=== PATIENT | female | born 1980 | race Caucasian/White ===

== ENCOUNTER → 2018-05-26 13:13 | Outpatient (CLI) | payer OTHER, SELFPAY ==
[2018-05-26 15:44] LABS: Color, Urine Yellow (Yellow); Glucose, Dipstick Normal (Normal); Ketone-Dipstick 5 mg/dl (Negative); Leukocyte Esterase-Dipstick 25 /ul (Negative); Nitrite-Dipstick Negative (Negative); Occult Blood-Urine Negative /ul (Negative); Protein-Dipstick Negative (Negative); Urine Bilirubin Dipstick Negative (Negative); Urine Clarity Clear (Clear); Urine Urobilinogen Normal (Normal)
[2018-05-26 15:48] LABS: Absolute Lymphocyte Count 1.58 X10^3/ul (0.83-4.51); Absolute Neutrophil Count 5.6 X10^3/uL (2.0-7.7); Basophil# 0.01 X10^3/uL; Basophil% 0.1 % (0-1); Eosinophil# 0.03 X10^3/uL; Eosinophils% 0.4 % (0-5); Hemoglobin 13.3 g/dl (12.0-15.0); Lymphocyte # 1.58 X10^3/ul (4.0); Lymphocyte % 21.1 % (19-41); Mean Corp Hgb Conc 34.1 g/gl (32-36); Mean Corpuscular Hgb 31.4 pg (27.0-32.0); Mean Corpuscular Volume 92.2 fL (81-99); Mean Platelet Vol. 9.9 fl (6.2-12.0); Monocyte# 0.25 X10^3/uL; Monocyte% 3.3 % (0-10); Neutrophil # 5.62 X10^3/uL (2.7-7.7); POSITIVE COUNT NO; POSITIVE DIFFERENTIAL NO; POSITIVE MORPHOLOGY NO; Platelet Count 220 K/mm3 (150-450); RBC Distribution Width CV 14.2 % (11.6-14.6); RBC Distribution Width SD 47.6 fl (35.1-43.9); Red Blood Count 4.23 M/mm3 (4.2-5.4); White Blood Count 7.5 K/mm3 (4.4-11.0)
[2018-05-26 16:06] LABS: Thyroid Stim Hormone (TSH) 2.58 uIU/mL (0.358-3.74)
[2018-05-26 16:48] LABS: HIV - WCH Non-Reactive (Nonreactive); Rubella IgG 209.7 IU/mL
[2018-05-26 17:13] LABS: Chlamydia Trachomatis by PCR Negative (Negative); Neisserai gonorrhoeae by PCR Negative (Negative); Probe Check PASS; Sample Adequacy Control PASS; Specimen Processing Control PASS
[2018-05-28 00:19] LABS: Prenatal RPR NONREACTIVE (NONREACTIVE)
[2018-05-28 11:46] LABS: HEPATITIS B SURFACE AG Negative (Negative); Hep C Antibodies 0.2 s/co ratio (0.0-0.9)
== END ==
PROVIDERS: Visit Provider Obstetrics & Gynecology
DX: Z34.82 Encounter for supervision of other normal pregnancy, second trimester (principal); Z11.3 Encounter for screening for infections with a predominantly sexual mode of transmission
CPT/HCPCS: 36415; 81002; 84443; 85025; 86703; 86762; 86803; 87340; 87491; 87591

== ENCOUNTER → 2018-07-21 09:58 | Outpatient (CLI) | payer OTHER, SELFPAY ==
[2018-07-21 10:42] LABS: Hematocrit 34.6 % (37-47); Hemoglobin 12.2 g/dl (12.0-15.0); Mean Corp Hgb Conc 35.3 g/gl (32-36); Mean Corpuscular Hgb 33.2 pg (27.0-32.0); Mean Corpuscular Volume 94.3 fL (81-99); Mean Platelet Vol. 9.5 fl (6.2-12.0); Platelet Count 193 K/mm3 (150-450); RBC Distribution Width CV 13.2 % (11.6-14.6); RBC Distribution Width SD 45.5 fl (35.1-43.9); Red Blood Count 3.67 M/mm3 (4.2-5.4); White Blood Count 6.9 K/mm3 (4.4-11.0)
[2018-07-21 10:48] LABS: Scan Indicated on CBC? Y/N NO
[2018-07-21 10:50] LABS: Glucose Challenge Gest 1H 50g 113 mg/dL (70-140)
== END ==
PROVIDERS: Family Provider Family Medicine; PCP Family Medicine; Visit Provider Obstetrics & Gynecology
DX: Z34.83 Encounter for supervision of other normal pregnancy, third trimester (principal)
CPT/HCPCS: 36415; 82950; 85027

== ENCOUNTER → 2018-09-13 16:33 | Outpatient (CLI) | payer SELFPAY ==
[2016-10-12 17:43] VITALS: BMI 29.0
== END ==
PROVIDERS: Visit Provider Obstetrics & Gynecology
DX: Z36.85 Encounter for antenatal screening for Streptococcus B (principal)
CPT/HCPCS: 87081

== ENCOUNTER 2018-10-23 15:35 | Inpatient (IN) | payer SELFPAY ==
[2018-10-23 16:39] VITALS: BMI 28.5
[2018-10-23] MEDS: Lactated Ringers 1,000 ML 50 ML IV ×2 (16:40→17:41)
[2018-10-23 16:50] LABS: Hematocrit 35.2 % (37-47); Hemoglobin 12.3 g/dl (12.0-15.0); Mean Corp Hgb Conc 34.9 g/gl (32-36); Mean Corpuscular Hgb 32.9 pg (27.0-32.0); Mean Corpuscular Volume 94.1 fL (81-99); Mean Platelet Vol. 10.3 fl (6.2-12.0); Platelet Count 188 K/mm3 (150-450); RBC Distribution Width CV 12.7 % (11.6-14.6); RBC Distribution Width SD 43.3 fl (35.1-43.9); Red Blood Count 3.74 M/mm3 (4.2-5.4); White Blood Count 8.6 K/mm3 (4.4-11.0)
[2018-10-23 16:51] LABS: Scan Indicated on CBC? Y/N NO
[2018-10-23] MEDS: Oxytocin 30 units/NS 500 ml 30 UNITS/500 ML IV.SOLN 334 UNITS IV (18:55)
--- NOTE | 2018-10-23 19:02 | PCM.OB.VAG ---
Vaginal Delivery Maternal Presentation: Active Labor late PNC. 41 3/7 wk EGA Amniotic Membrane Rupture Type: Artificial Amniotic Fluid Description: Moderate meconium Final MADDY: 10/13/18 Gestational age: 41 Weeks and 3 Days Date of Procedure: 10/23/18 Pre-Operative Diagnosis: 41 3/7 wk Post-Operative Diagnosis: Same Surgery/ Procedure Performed: Spontaneous Vaginal Delivery Type of Anesthesia: None Description of Procedure: of a pena viable female over intact perineum Head delivered BARBARA OP and nares bulb suctioned on perineum Blood noted from OP. Large clot delivered adjacent to baby. Nuchal cord x one reduced. Shoulders delivered easily. Baby to Dr. Kyle and RT in attendance for delivery. Ap 8/9 wt pending. Routine cord gases collected, sent PP exam: no lacerations noted. Large cystocele and rectocele Placenta delivered by spont expulsion, expression. 3V cord, normal appearing and intact with trailing membranes. continued bleeding throughout this stage. Methergine 0.2 mg IM x one given. IV pitocin at 500 cc / hr given as bolus. Cytotec 1000 mcg MI x one. Exam then to extract additional clot from vagina and lower uterine segment. Fundus firm NT at well inferior to umbilicus then. EBL total approx 1000 cc Pt and infant tolerated delivery well. To recovery , stable condition. Presentation: Vertex, BARBARA Placental Delivery Description: Spontaneous Placenta Disposition: [facility] Cord Vessel Description: 3 Vessels Nuchal Cord Compression: Without compression Cord Gases drawn per routine: ABG, VBG Cord Entanglement: Around neck x 1, loose Estimated Blood Loss: 1000 cc Infant A gender: Female (1 minute): 8 (5 minute): 9 Episiotomy Description: None Laceration: None Medications given after delivery: IV Pitocin, IM Methergin - Cytotec 1000 mcg MI x one. Complications: - - hemorrhage, multip
--- NOTE | 2018-10-23 19:18 | OP.PCM_ITS ---
Vaginal Delivery Maternal Presentation: Active Labor late PNC. 41 3/7 wk EGA Amniotic Membrane Rupture Type: Artificial Amniotic Fluid Description: Moderate meconium Final MADDY: 10/13/18 Gestational age: 41 Weeks and 3 Days Date of Procedure: 10/23/18 Pre-Operative Diagnosis: 41 3/7 wk Post-Operative Diagnosis: Same Surgery/ Procedure Performed: Spontaneous Vaginal Delivery Type of Anesthesia: None Description of Procedure: of a pena viable female over intact perineum Head delivered BARBARA OP and nares bulb suctioned on perineum Blood noted from OP. Large clot delivered adjacent to baby. Nuchal cord x one reduced. Shoulders delivered easily. Baby to Dr. Kyle and RT in attendance for delivery. Ap 8/9 wt pending. Routine cord gases collected, sent PP exam: no lacerations noted. Large cystocele and rectocele Placenta delivered by spont expulsion, expression. 3V cord, normal appearing and intact with trailing membranes. continued bleeding throughout this stage. Methergine 0.2 mg IM x one given. IV pitocin at 500 cc / hr given as bolus. Cytotec 1000 mcg NH x one. Exam then to extract additional clot from vagina and lower uterine segment. Fundus firm NT at well inferior to umbilicus then. EBL total approx 1000 cc Pt and infant tolerated delivery well. To recovery , stable condition. Presentation: Vertex, BARBARA Placental Delivery Description: Spontaneous Placenta Disposition: [facility] Cord Vessel Description: 3 Vessels Nuchal Cord Compression: Without compression Cord Gases drawn per routine: ABG, VBG Cord Entanglement: Around neck x 1, loose Estimated Blood Loss: 1000 cc Infant A gender: Female (1 minute): 8 (5 minute): 9 Episiotomy Description: None Laceration: None Medications given after delivery: IV Pitocin, IM Methergin - Cytotec 1000 mcg NH x one. Complications: - - hemorrhage, multip
--- NOTE | 2018-10-23 19:25 | PCM.DCVAG ---
Discharge Diet: No Restrictions Return to work on:: 11/20/18 May resume sexual activity in: 4-6 weeks Additional Activity Instructions:: Nothing in the vagina for 4-6 weeks. You may return to work/school in 6 weeks. Additional Instructions: If you experience any of the following, contact your healthcare provider. Bleeding that soaks a pad every hour for 2 hours Fever 100.4 or higher Unrelieved abdominal pain Problems urinating (including inability to urinate or burning while urinating). Visual changes Severe headache Flu-like symptoms Pain or redness in one of both of your breasts Pain, warmth, tenderness or swelling in your legs, especially the calf area Frequent nausea and vomiting Symptoms of depression or anxiety If you experience any of the following, call 911 or go to the nearest Emergency Room. Chest pain Problems breathing Seizure activity Partial or complete paralysis of a body part, slurred speech, weakness or drooping of the face, or a sudden inability to walk or hold your balance Allergies/Adverse Reactions: Allergies No Known Allergies Allergy (Verified 10/12/16 17:52) Medications to take at Discharge Vits [Prenatabs FA ] 1 tablet PO DAILY 11/21/13 Fish Oil PO DAILY 10/23/18 Please Follow Up With: Daryl Browne MD - [phone] When: Call to make an appointment with your doctor in 6 weeks. Primary Care Physician: Lucas Restrepo MD [Primary Care Provider] - Test Results: Test results from this visit will be discussed in further detail at your follow-up appointment, if applicable. Proposed Discharge Date: 10/24/18
--- NOTE | 2018-10-23 19:26 | DCINST_ITS ---
Discharge Diet: No Restrictions Return to work on:: 11/20/18 May resume sexual activity in: 4-6 weeks Additional Activity Instructions:: Nothing in the vagina for 4-6 weeks. You may return to work/school in 6 weeks. Additional Instructions: If you experience any of the following, contact your healthcare provider. * Bleeding that soaks a pad every hour for 2 hours * Fever 100.4 or higher * Unrelieved abdominal pain * Problems urinating (including inability to urinate or burning while urinating). * Visual changes * Severe headache * Flu-like symptoms * Pain or redness in one of both of your breasts * Pain, warmth, tenderness or swelling in your legs, especially the calf area * Frequent nausea and vomiting * Symptoms of depression or anxiety If you experience any of the following, call 911 or go to the nearest Emergency Room. * Chest pain * Problems breathing * Seizure activity * Partial or complete paralysis of a body part, slurred speech, weakness or drooping of the face, or a sudden inability to walk or hold your balance Allergies/Adverse Reactions: Allergies No Known Allergies Allergy (Verified 10/12/16 17:52) Medications to take at Discharge Vits [Prenatabs FA ] 1 tablet PO DAILY 11/21/13 Fish Oil PO DAILY 10/23/18 Please Follow Up With: Daryl Browne MD - [phone] When: Call to make an appointment with your doctor in 6 weeks. Primary Care Physician: Lucas Restrepo MD [Primary Care Provider] - Test Results: Test results from this visit will be discussed in further detail at your follow- up appointment, if applicable. Proposed Discharge Date: 10/24/18
[2018-10-23] MEDS: Oxytocin 30 units/NS 500 ml 30 UNITS/500 ML IV.SOLN 167 UNITS IV (19:55)
[2018-10-23 21:55] VITALS: BP 128/59; PULSE 65; RESP 18; TEMP 37.9; O2SAT 100
--- NOTE | 2018-10-23 21:55 | NURSING ---
10/23/185: Pt. temperature elevated at 100.2 degrees. Tylenol was given at 1939 and is not yet due. Room temperature turned down slightly and pt. was given just one blanket instead of the two on her bed. Pt. declines any headache or nausea. Will continue to monitor temperature and give more tylenol when due.
[2018-10-23 23:38] VITALS: BP 122/58; PULSE 83; RESP 17; TEMP 37.3; O2SAT 100
[2018-10-23] MEDS: Acetaminophen 500 MG Tablet 1000 MG PO (23:45)
--- NOTE | 2018-10-24 01:06 | NURSING ---
Patient recieved first bag of pitocin 500ml at 334ml/hr and then 2nd bag of pitocin @167ml/hr until complete. fundus firm and bleeding minimal
[2018-10-24 08:50] VITALS: BP 126/60; PULSE 74; RESP 16; TEMP 36.7
--- NOTE | 2018-10-24 08:51 | PCM.PN.OB ---
Subjective: PPD#1 Doing well. Nursing. States up a lot last night with baby Hoping to rest today. Doing well minimal pain. No heavy bleeding reported. S/L in place L forearm and will remove this today. - Physical Exam General: Alert, Oriented x3, Cooperative, No apparent distress HEENT: Atraumatic Neck: Supple Abdomen: Soft - fundus firm NT at umbilicus Psych/Mental Status: Normal Affect Vital Signs Temp Pulse Resp BP Pulse Ox 99.2 F H 83 17 122/58 H 100 10/23/18 23:38 10/23/18 23:38 10/23/18 23:38 10/23/18 23:38 10/23/18 23:38 Oxygen Delivery Method Room Air Weight: 80.286 kg Body Mass Index (BMI) 28.5 Intake and Output for Last 24 Hours 10/22/18 10/23/18 10/24/18 23:59 23:59 23:59 Intake Total 200 / 200 Output Total 200 / 200 Balance 0 / 0 Laboratory Tests Past 24 Hrs 10/23/18 10/23/18 16:30 16:30 WBC 8.6 RBC 3.74 L Hgb 12.3 Hct 35.2 L MCV 94.1 MCH 32.9 H MCHC 34.9 RDW 12.7 RDW Differential 43.3 Plt Count 188 MPV 10.3 Blood Type A POSITIVE Antibody Screen NEGATIVE Medical Necessity - Tobacco Use Smoking Status: Never smoker Assessment/Plan PPD#1 Stable pp. continue care.
[2018-10-24] MEDS: Senna/Docusate Sodium 1 Tablet PO (10:52)
[2018-10-24] MEDS: Prenatal Vits Tablet 1 TABLET PO (10:52)
[2018-10-24] MEDS: Ibuprofen 600 MG Tablet PO ×2 (10:57→19:33)
[2018-10-24 12:35] VITALS: BP 116/63; PULSE 67; RESP 16; TEMP 36.4
[2018-10-24 16:10] VITALS: BP 122/63; PULSE 75; RESP 16; TEMP 36.6
[2018-10-24 20:00] VITALS: BP 121/57; PULSE 72; RESP 17; TEMP 36.4
[2018-10-25 02:00] VITALS: BP 117/55; PULSE 88; RESP 16; TEMP 36.4
--- NOTE | 2018-10-25 07:52 | PCM.PN.OB ---
Subjective: PPD#2 Doing well. Nursing. Milk not in yet Multiple questions today re contraception. Considering Mirena but not yet, and will discuss further with Dr Browne at check up. Also asking about the bleeding she had at delivery. Reviewed this with her. OK to have another child. - Physical Exam General: Alert, Oriented x3, Cooperative, No apparent distress HEENT: Atraumatic Neck: Supple Abdomen: Soft - Fundus firm NT at inferior to umbilicus Neurological: Cranial nerves II-XII grossly intact Psych/Mental Status: Normal Affect Vital Signs Temp Pulse Resp BP Pulse Ox 97.6 F L 88 16 117/55 L 100 10/25/18 02:00 10/25/18 02:00 10/25/18 02:00 10/25/18 02:00 10/23/18 23:38 Oxygen Delivery Method Room Air Weight: 80.286 kg Body Mass Index (BMI) 28.5 Intake and Output for Last 24 Hours 10/23/18 10/24/18 10/25/18 23:59 23:59 23:59 Intake Total 200 / 200 Output Total 200 / 200 Balance 0 / 0 Medical Necessity - Tobacco Use Smoking Status: Never smoker Assessment/Plan PPD#2 Stable pp. continue care. Contraception. Interested in Mirena IUD but not immediately. -- Reviewed R,B,A,failure rate of Mirena. Discussed insertion, string check, use for up to 5 yrs. Minimal to no period with this method. -- discuss further with Dr. Browne at 6 wk pp check PP hemorrhage -- Grand multip and mild atony prior to delivery of placenta as reason -- partial placental abruption also noted with delivery of large clot with delivery of --advised OK to have more children Additional meds available to be used prn for controlling pp bleeding at future delivery , if occurs. (partial abruption less likely)
[2018-10-25 08:45] VITALS: BP 114/59; PULSE 70; RESP 16; TEMP 36.4; O2SAT 99
[2018-10-25] MEDS: Prenatal Vits Tablet 1 TABLET PO (10:34)
[2018-10-25 12:48] VITALS: BP 123/66; PULSE 71; RESP 16; TEMP 36.7; O2SAT 97
== END 2018-10-25 13:15 | disposition home or self-care (01) | DRG 768 ==
PROVIDERS: Admitting Provider Obstetrics & Gynecology; Family Provider Family Medicine; PCP Family Medicine; Referring Provider Obstetrics & Gynecology; Visit Provider Obstetrics & Gynecology
DX: O34.219 Maternal care for unspecified type scar from previous cesarean delivery (principal); Z37.0 Single live birth; O72.1 Other immediate postpartum hemorrhage; O48.0 Post-term pregnancy; Z3A.41 41 weeks gestation of pregnancy; O77.0 Labor and delivery complicated by meconium in amniotic fluid; N81.6 Rectocele; N81.10 Cystocele, unspecified; O69.1XX0 Labor and delivery complicated by cord around neck, with compression, not applicable or unspecified
CPT/HCPCS: 59025; 59050; 85027; 86850; 86900; 99218; J7120; G0378